=== PATIENT | female | born 1995 | race Caucasian/White ===

== ENCOUNTER → 2021-09-23 | Outpatient (REF) | payer OTHER | LOC: M PLALAB 14:59 | PROVIDERS: ATTEND Advanced Practice Midwife | DX: Z53.9 Procedure and treatment not carried out, unspecified reason (principal) ==

== ENCOUNTER → 2021-10-03 | Outpatient (CLI) | payer OTHER ==
[2021-10-03 17:48] LABS: HEMATOCRIT 34.3 % (36.0-47.0); HEMOGLOBIN 11.5 g/dl (12.0-15.5); MEAN CORPUSCULAR HEMOGLOBIN 26.8 pg (27.0-33.0); MEAN CORPUSCULAR HGB CONC 33.5 g/dl (32.0-36.5); PLATELET COUNT, AUTOMATED 317 10^3/uL (150-450); RED BLOOD COUNT 4.29 10^6/uL (4.00-5.40); WHITE BLOOD COUNT 7.8 10^3/uL (4.0-10.0)
[2021-10-03 19:01] LABS: HEPATITIS C VIRUS ABY INDEX 0.2 INDEX (<0.8); HIV 1&2 SCREEN CENTAUR NEGATIVE (NEGATIVE)
[2021-10-03 21:13] LABS: GC DNA AMPLIFICATION NEGATIVE (NEGATIVE)
== END ==
LOC: M PLALAB 15:03
PROVIDERS: ATTEND Advanced Practice Midwife
DX: Z34.01 Encounter for supervision of normal first pregnancy, first trimester (principal)

== ENCOUNTER → 2022-01-28 | Outpatient (CLI) | payer OTHER ==
[2022-01-28 13:53] LABS: HEMATOCRIT 29.2 % (36.0-47.0); HEMOGLOBIN 9.3 g/dl (12.0-15.5); MEAN CORPUSCULAR HEMOGLOBIN 25.8 pg (27.0-33.0); MEAN CORPUSCULAR HGB CONC 31.8 g/dl (32.0-36.5); MEAN CORPUSCULAR VOLUME 81.1 fl (80.0-96.0); PLATELET COUNT, AUTOMATED 309 10^3/uL (150-450); WHITE BLOOD COUNT 12.6 10^3/uL (4.0-10.0)
[2022-01-28 15:35] LABS: GC DNA AMPLIFICATION NEGATIVE (NEGATIVE)
== END ==
LOC: M PLALAB 08:38
PROVIDERS: ATTEND Obstetrics & Gynecology
DX: Z34.02 Encounter for supervision of normal first pregnancy, second trimester (principal)

== ENCOUNTER → 2022-02-03 | Outpatient (CLI) | payer OTHER | LOC: M LAB 08:11 | PROVIDERS: ATTEND Obstetrics & Gynecology | DX: Z34.02 Encounter for supervision of normal first pregnancy, second trimester (principal) ==

== ENCOUNTER → 2022-03-14 | Outpatient (CLI) | payer OTHER | LOC: M WHC 13:53 | PROVIDERS: ATTEND Obstetrics & Gynecology | DX: Z36.89 Encounter for other specified antenatal screening (principal); O24.419 Gestational diabetes mellitus in pregnancy, unspecified control; Z3A.34 34 weeks gestation of pregnancy ==

== ENCOUNTER → 2022-03-26 | Outpatient (REF) | payer OTHER | LOC: M PLALAB 16:51 | PROVIDERS: ATTEND Obstetrics & Gynecology | DX: O24.419 Gestational diabetes mellitus in pregnancy, unspecified control (principal) ==

== ENCOUNTER 2022-04-14 16:43 | Inpatient (IN) | payer OTHER ==
[~2022-04-14] VITALS: Ht 162.6 cm; Wt 92.4 kg
[2022-04-14] VITALS (18 sets, daily range): BP systolic 127–204; BP diastolic 75–110
[2022-04-14] MEDS ORDERED: LACTATED RINGER'S 1000 ML IV STA (17:09)
[2022-04-14] MEDS ORDERED: LIDOCAINE 1% MDV 20ML VIAL INFIL PRN (17:10)
[2022-04-14] MEDS ORDERED: CARBOPROST TROMETHAMINE 250 MCG/ML AMP IM PRN (17:10)
[2022-04-14] MEDS ORDERED: METHYLERGONOVINE MALEATE 0.2 MG/ML VIAL (J2210) IM PRN (17:10)
[2022-04-14] MEDS ORDERED: TRANEXAMIC ACID INJection 1,000 MG in NS 100 ML IV PRN (17:10)
[2022-04-14] MEDS ORDERED: OXYTOCIN DRIP 30 UNITS in IV 1 EA IV PRN (17:10)
[2022-04-14] MEDS ORDERED: OXYTOCIN INJ 10 UNITS/ML VIAL (J2590) IM PRN (17:10)
[2022-04-14] MEDS ORDERED: FERR325T3 PO (17:51)
[2022-04-14] MEDS ORDERED: PRENTAB9 PO (17:51)
[2022-04-14] MEDS ORDERED: OMEP40CA4 PO (17:51)
[2022-04-14] MEDS ORDERED: VITA200028 PO (17:51)
[2022-04-14] MEDS ORDERED: LORA-674 PO (17:51)
[2022-04-14] MEDS ORDERED: HOME MED LIST COMPLETE! XX SCH (17:55)
[2022-04-14] MEDS ORDERED: NIFEdipine 10 MG CAP PO STA (17:56)
[2022-04-14] MEDS ORDERED: LABETALOL 100MG/20ML VIAL IV STA (18:28)
[2022-04-14 19:04] LABS: HEMATOCRIT 34.8 % (36.0-47.0); HEMOGLOBIN 11.3 g/dl (12.0-15.5); MEAN CORPUSCULAR HEMOGLOBIN 27.4 pg (27.0-33.0); MEAN CORPUSCULAR HGB CONC 32.5 g/dl (32.0-36.5); MEAN CORPUSCULAR VOLUME 84.3 fl (80.0-96.0); PLATELET COUNT, AUTOMATED 169 10^3/uL (150-450); RED BLOOD COUNT 4.13 10^6/uL (4.00-5.40); WHITE BLOOD COUNT 8.2 10^3/uL (4.0-10.0)
[2022-04-14 19:28] LABS: TOTAL PROTEIN,RANDOM URINE 30.4 MG/DL (0.0-12.0)
[2022-04-14 19:32] LABS: ALT/SGPT 35 U/L (12-78); BILIRUBIN,TOTAL 0.4 MG/DL (0.2-1.0); CREATININE FOR GFR 0.64 MG/DL (0.55-1.30); GLOMERULAR FILTRATION RATE > 60.0 (>60); LDH LACTATE DEHYDROGENASE 262 U/L (84-246); URIC ACID 6.3 MG/DL (2.6-6.0)
[2022-04-14] MEDS: miSOPROStol 50MCG 1/2 TABLET PO SCH (20:13)
[2022-04-14] MEDS ORDERED: ACETAMINOPHEN 500 MG TAB PO PRN (22:50)
[2022-04-15] VITALS (47 sets, daily range): BP systolic 117–169; BP diastolic 57–97
[2022-04-15] MEDS: miSOPROStol 50MCG 1/2 TABLET PO SCH ×4 (00:29→13:59)
[2022-04-15] MEDS ORDERED: OMEPRAZOLE 20MG CAP PO ONE (18:00)
[2022-04-15] MEDS ORDERED: OXYTOCIN 30 UNITS IN 0.9% NaCl 500ML IV BAG (J2590) As Ordered ONE (19:29)
[2022-04-15] MEDS: OXYTOCIN DRIP 30 UNITS in IV 1 EA IV SCH (20:55)
[2022-04-15] MEDS: LR 1,000 ML IV SCH (20:55)
[2022-04-15] MEDS: guaiFENesin SYRUP 200MG 10ML UDC PO PRN (21:37)
[2022-04-16] VITALS (50 sets, daily range): BP systolic 121–185; BP diastolic 64–121
[2022-04-16] MEDS ORDERED: BUTORPHANOL 2 MG/ML INJ (J0595) IV ONE (01:00)
[2022-04-16] MEDS ORDERED: PROMETHAZINE 25MG/ML 1ML VIAL IV PRN (01:00)
[2022-04-16] MEDS: guaiFENesin SYRUP 200MG 10ML UDC PO PRN (05:10)
[2022-04-16] MEDS: LABETALOL 100MG TAB PO SCH ×2 (08:01→21:04)
[2022-04-16 10:19] LABS: HEMATOCRIT 35.9 % (36.0-47.0); HEMOGLOBIN 11.2 g/dl (12.0-15.5); MEAN CORPUSCULAR HEMOGLOBIN 26.9 pg (27.0-33.0); MEAN CORPUSCULAR HGB CONC 31.2 g/dl (32.0-36.5); MEAN CORPUSCULAR VOLUME 86.1 fl (80.0-96.0); PLATELET COUNT, AUTOMATED 168 10^3/uL (150-450); RED BLOOD COUNT 4.17 10^6/uL (4.00-5.40); WHITE BLOOD COUNT 11.6 10^3/uL (4.0-10.0)
[2022-04-16] MEDS ORDERED: diphenhydrAMINE 50MG/ML VIAL (J1200) IV PRN (10:45)
[2022-04-16] MEDS ORDERED: NALOXONE INJ 0.4MG/1ML VIAL (J2310 PER 1MG) IV PRN (10:45)
[2022-04-16] MEDS ORDERED: LR 500 ML IV PRN (10:45)
[2022-04-16] MEDS ORDERED: ONDANSETRON 4MG 2ML VIAL IV PRN (10:45)
[2022-04-16] MEDS ORDERED: EPIDURAL/PCA KEYS XX PRN (10:45)
[2022-04-16] MEDS ORDERED: ePHEDrine SULFATE 25 MG/5 ML(5MG/ML) SYRINGE IVP PRN (10:45)
[2022-04-16] MEDS: FENTANYL/ROPIVACAINE/NACL BAG 100 ML EPIDURAL SCH ×2 (11:07→21:03)
[2022-04-16] MEDS: LR 1,000 ML IV SCH ×2 (13:09→21:08)
[2022-04-16] MEDS: LORATADINE 10 MG TAB PO SCH (20:16)
[2022-04-16] MEDS: OXYTOCIN DRIP 30 UNITS in IV 1 EA IV SCH (22:42)
[2022-04-17] VITALS (7 sets, daily range): BP systolic 123–149; BP diastolic 69–83
[2022-04-17] MEDS: guaiFENesin SYRUP 200MG 10ML UDC PO PRN (00:44)
[2022-04-17] MEDS ORDERED: OXYTOCIN INJ 10 UNITS/ML VIAL (J2590) As Ordered ONE (02:51)
[2022-04-17] MEDS ORDERED: KETOROLAC 60MG 2ML VIAL As Ordered ONE (02:51)
[2022-04-17] MEDS ORDERED: dexameTHASONE 4 MG/ML 1ML VIAL (J1100 PER 1MG) As Ordered ONE (02:51)
[2022-04-17] MEDS ORDERED: ONDANSETRON 4MG 2ML VIAL As Ordered ONE (02:51)
[2022-04-17] MEDS ORDERED: MORPHINE PRES-FREE INJ 10 MG/10 ML VIAL As Ordered ONE (02:51)
[2022-04-17] MEDS ORDERED: BICITRA 30ML SOLN UDC As Ordered ONE (02:54)
[2022-04-17] MEDS ORDERED: CLINDAMYCIN 900MG/50ML PREMIX BAG As Ordered ONE (02:54)
[2022-04-17] MEDS ORDERED: AZITHROMYCIN INJ 500MG VIAL As Ordered ONE (02:54)
[2022-04-17] MEDS ORDERED: LIDOCAINE 2% W/EPINEPHRINE 20ML VIAL **PRES FREE As Ordered ONE (02:57)
[2022-04-17] MEDS ORDERED: ONDANSETRON 4MG 2ML VIAL IV PRN (03:50)
[2022-04-17] MEDS ORDERED: diphenhydrAMINE 50MG/ML VIAL (J1200) IV PRN (03:50)
[2022-04-17] MEDS ORDERED: PERCOCET 5MG/325MG TAB PO PRN ×2 (03:50→04:05)
[2022-04-17] MEDS ORDERED: **NOTE PATIENT COMMENT** MISC XX SCH (03:50)
[2022-04-17] MEDS ORDERED: LR 1,000 ML IV SCH ×2 (03:50→04:05)
[2022-04-17] MEDS ORDERED: METOCLOPRAMIDE INJ 10MG/2ML VIAL (J2765 PER 1) IV PRN ×2 (03:50)
[2022-04-17] MEDS ORDERED: NALOXONE INJ 0.4MG/1ML VIAL (J2310 PER 1MG) IV PRN ×2 (03:50)
[2022-04-17] MEDS ORDERED: fentaNYL 100 MCG/2 ML INJECTION IV PRN (03:50)
[2022-04-17] MEDS ORDERED: fentaNYL 100 MCG/2 ML INJECTION As Ordered ONE (03:53)
[2022-04-17] MEDS: SLF 3 ML SYR IV SCH ×3 (04:00→20:52)
[2022-04-17] MEDS ORDERED: CLINDAMYCIN 900 MG in IV 1 EA IV ONE (04:05)
[2022-04-17] MEDS ORDERED: SIMETHICONE 80MG CHEW TAB PO PRN (04:05)
[2022-04-17] MEDS ORDERED: MOM 30ML SUSPENSION UDC PO PRN (04:05)
[2022-04-17] MEDS: LR 1,000 ML IV SCH ×3 (04:05→20:52)
[2022-04-17] MEDS ORDERED: BICITRA 30ML SOLN UDC PO ONE (04:05)
[2022-04-17] MEDS ORDERED: AZITHROMYCIN INJ 500 MG, VIAL MATE ADAPTER 1 EACH in NS 250 ML IV ONE (04:05)
[2022-04-17] MEDS ORDERED: OXYTOCIN DRIP 30 UNITS in IV 1 EA IV SCH ×4 (04:05)
[2022-04-17] MEDS ORDERED: GENTAMICIN IV ONE (04:10)
[2022-04-17] MEDS ORDERED: D5W IV ONE (04:10)
[2022-04-17] MEDS ORDERED: IBUP80TA PO (04:30)
[2022-04-17] MEDS ORDERED: PERCOCET PO (04:30)
[2022-04-17] MEDS ORDERED: COLA100C5 PO (04:30)
[2022-04-17] MEDS: LORATADINE 10 MG TAB PO SCH (09:48)
[2022-04-17] MEDS: KETOROLAC 30 MG/ML 1ML VIAL IV SCH ×3 (09:48→21:30)
[2022-04-17] MEDS: DOCUSATE SODIUM 100MG CAPSULE PO SCH ×2 (09:48→20:52)
[2022-04-17] MEDS: PRENATAL VITAMINS CHEWABLE TABLET PO SCH (09:49)
[2022-04-17] MEDS: LABETALOL 100MG TAB PO SCH ×2 (09:49→20:53)
[2022-04-18 02:17] VITALS: BP 138/77
[2022-04-18] MEDS: IBUPROFEN 800 MG TAB PO SCH ×3 (05:39→21:22)
[2022-04-18 05:44] VITALS: BP 117/58
[2022-04-18 06:18] LABS: HEMATOCRIT 25.3 % (36.0-47.0); MEAN CORPUSCULAR HEMOGLOBIN 27.6 pg (27.0-33.0); MEAN CORPUSCULAR VOLUME 86.1 fl (80.0-96.0); PLATELET COUNT, AUTOMATED 161 10^3/uL (150-450); RED BLOOD COUNT 2.94 10^6/uL (4.00-5.40); WHITE BLOOD COUNT 11.5 10^3/uL (4.0-10.0)
[2022-04-18 06:25] LABS: HEMOGLOBIN 8.1 g/dl (12.0-15.5)
[2022-04-18] MEDS: RHOGAM 300 MCG (1500 IU) INJ (J2790) IM SCH (07:35)
[2022-04-18] MEDS: LORATADINE 10 MG TAB PO SCH (09:24)
[2022-04-18] MEDS: DOCUSATE SODIUM 100MG CAPSULE PO SCH ×2 (09:24→21:21)
[2022-04-18] MEDS: PRENATAL VITAMINS CHEWABLE TABLET PO SCH (09:24)
[2022-04-18] MEDS: LABETALOL 100MG TAB PO SCH ×2 (09:25→21:22)
[2022-04-18 10:00] VITALS: BP 118/68
[2022-04-18 14:00] VITALS: BP 136/74
[2022-04-18 18:00] VITALS: BP 130/69
[2022-04-18] MEDS: PERCOCET 5MG/325MG TAB PO PRN (20:29)
[2022-04-18 22:00] VITALS: BP 126/72
[2022-04-19 02:00] VITALS: BP 121/70
[2022-04-19] MEDS: IBUPROFEN 800 MG TAB PO SCH ×3 (05:19→21:58)
[2022-04-19 06:00] VITALS: BP 121/67
[2022-04-19] MEDS: LORATADINE 10 MG TAB PO SCH (08:40)
[2022-04-19] MEDS: DOCUSATE SODIUM 100MG CAPSULE PO SCH ×2 (08:41→21:11)
[2022-04-19] MEDS: LABETALOL 100MG TAB PO SCH ×2 (08:41→21:16)
[2022-04-19] MEDS: PRENATAL VITAMINS CHEWABLE TABLET PO SCH (08:41)
[2022-04-19] MEDS ORDERED: MEASLES,MUMPS,RUBELLA VACCINE INJ (MMR-II) (90707) SC.IMMUN ONE (09:00)
[2022-04-19 17:57] VITALS: BP 129/59
[2022-04-19] MEDS: PERCOCET 5MG/325MG TAB PO PRN (18:34)
[2022-04-19 22:00] VITALS: BP 143/81
[2022-04-19] MEDS: guaiFENesin SYRUP 200MG 10ML UDC PO PRN (22:08)
[2022-04-20 02:00] VITALS: BP 125/68
[2022-04-20 05:50] VITALS: BP 122/64
[2022-04-20] MEDS: IBUPROFEN 800 MG TAB PO SCH ×2 (06:00→14:05)
[2022-04-20] MEDS: RHOGAM 300 MCG (1500 IU) INJ (J2790) IM SCH (08:07)
[2022-04-20] MEDS: LORATADINE 10 MG TAB PO SCH (08:34)
[2022-04-20] MEDS: DOCUSATE SODIUM 100MG CAPSULE PO SCH (08:34)
[2022-04-20 08:35] VITALS: BP 138/84
[2022-04-20] MEDS: LABETALOL 100MG TAB PO SCH (08:35)
[2022-04-20] MEDS: PRENATAL VITAMINS CHEWABLE TABLET PO SCH (08:35)
[2022-04-20] MEDS ORDERED: LABE100T6 PO (14:35)
== END 2022-04-20 17:24 | disposition home or self-care (01) | DRG 773 ==
LOC: M LDO 16:43 → M LDI 17:18 → M OBS 04-17 05:47
PROVIDERS: ADMIT Advanced Practice Midwife; ATTEND Obstetrics & Gynecology
PROC: 3E0P7GC Introduction of Other Therapeutic Substance into Female Reproductive, Via Natural or Artificial Opening (ICD-10-PCS; 2022-04-14)
PROC: 10907ZC Drainage of Amniotic Fluid, Therapeutic from Products of Conception, Via Natural or Artificial Opening (ICD-10-PCS; 2022-04-16)
PROC: 10D00Z1 Extraction of Products of Conception, Low, Open Approach (ICD-10-PCS; principal; 2022-04-17 02:47)
DX: O14.04 Mild to moderate pre-eclampsia, complicating childbirth (principal); Z3A.38 38 weeks gestation of pregnancy; O24.420 Gestational diabetes mellitus in childbirth, diet controlled; O76 Abnormality in fetal heart rate and rhythm complicating labor and delivery; O62.0 Primary inadequate contractions; Z79.899 Other long term (current) drug therapy; Z37.0 Single live birth; Z88.1 Allergy status to other antibiotic agents

== ENCOUNTER → 2022-05-05 | Outpatient (REF) | payer OTHER ==
[~2022-05-05] MED LIST: COLA100C5 PO; FERR325T3 PO; IBUP80TA PO; LABE100T6 PO; LORA-674 PO; OMEP40CA4 PO; PERCOCET PO; PRENTAB9 PO; VITA200028 PO
[2022-05-05 14:27] LABS: CHOLESTEROL RISK RATIO 3.536 (<5)
== END ==
LOC: M LAB REF 12:29
PROVIDERS: ATTEND Nurse Practitioner Family
DX: R79.89 Other specified abnormal findings of blood chemistry (principal)

== ENCOUNTER → 2022-07-21 | Outpatient (REF) | payer OTHER ==
[2022-07-21 14:37] LABS: CHOLESTEROL RISK RATIO 2.3 (<5); LDL CHOLESTEROL 92.6 MG/DL (<100)
== END ==
LOC: M LAB REF 11:53
PROVIDERS: ATTEND Nurse Practitioner Family
DX: R79.89 Other specified abnormal findings of blood chemistry (principal)

== ENCOUNTER → 2022-09-08 | Outpatient (REF) | payer OTHER | LOC: M SFHCWAGY 13:24 | PROVIDERS: ATTEND Obstetrics & Gynecology | DX: Z12.4 Encounter for screening for malignant neoplasm of cervix (principal); Z77.9 Other contact with and (suspected) exposures hazardous to health | CPT/HCPCS: G0123; G0463 ==

== ENCOUNTER → 2023-05-18 | Outpatient (REF) | payer OTHER ==
[~2023-05-18] MED LIST changes: +LORA-1041 PO; -LORA-674 PO
[2023-05-18 13:03] LABS: BASO % 0.1 % (0.0-1.0); EOS # 0.1 10^3/uL (0.0-0.5); EOS % 0.7 % (0.0-3.0); HEMATOCRIT 38.4 % (36.0-47.0); HEMOGLOBIN 12.1 g/dl (12.0-15.5); LYMPH # 1.6 10^3/uL (1.5-5.0); LYMPH % 23.1 % (24.0-44.0); MEAN CORPUSCULAR HEMOGLOBIN 25.4 pg (27.0-33.0); MEAN CORPUSCULAR HGB CONC 31.5 g/dl (32.0-36.5); MEAN CORPUSCULAR VOLUME 80.7 fl (80.0-96.0); MONO # 0.5 10^3/uL (0.0-0.8); MONO % 6.6 % (2.0-8.0); NEUTROPHILS # 4.7 10^3/uL (1.5-8.5); NEUTROPHILS % 69.2 % (36.0-66.0); PLATELET COUNT, AUTOMATED 320 10^3/uL (150-450); RED BLOOD COUNT 4.76 10^6/uL (4.00-5.40); WHITE BLOOD COUNT 6.8 10^3/uL (4.0-10.0)
[2023-05-18 13:15] LABS: ALBUMIN 4.5 G/DL (3.2-5.2); ALKALINE PHOSPHATASE 84 U/L (46-116); ALT/SGPT 37 U/L (7.0-40); AST/SGOT 21 U/L (<34); BILIRUBIN,TOTAL 0.4 MG/DL (0.3-1.2); BLOOD UREA NITROGEN 12 MG/DL (9-23); CALCIUM LEVEL 9.1 MG/DL (8.5-10.1); CARBON DIOXIDE LEVEL 28 MMOL/L (20-31); CHLORIDE LEVEL 104 MMOL/L (98-107); CHOLESTEROL LEVEL 164 MG/DL (<200); CHOLESTEROL RISK RATIO 3.04 (<5); CREATININE FOR GFR 0.76 MG/DL (0.55-1.30); GLOMERULAR FILTRATION RATE > 60.0 (>60); GLUCOSE, FASTING 85 MG/DL (60-100); HDL CHOLESTEROL 53.9 MG/DL (>40); LDL CHOLESTEROL 89.9 MG/DL (<100); NON-HDL-C 110.1 MG/DL; POTASSIUM SERUM 4.3 MMOL/L (3.5-5.1); SODIUM LEVEL 140 MMOL/L (136-145); THYROID STIMULATING HORMONE 1.472 uIU/ML (0.55-4.78); TOTAL 25(OH) VITAMIN D 67.4 NG/ML (20.0-100.0); TOTAL PROTEIN 7.2 G/DL (5.7-8.2); TRIGLYCERIDES LEVEL 101 MG/DL (<150)
[2023-05-18 13:23] LABS: HEMOGLOBIN A1c 5.4 % (4.0-6.0)
== END ==
LOC: M LAB REF 12:07
PROVIDERS: ATTEND Nurse Practitioner Family
DX: Z13.228 Encounter for screening for other metabolic disorders (principal)

== ENCOUNTER → 2023-09-02 | Outpatient (REF) | payer OTHER | LOC: M LAB REF 12:12 | PROVIDERS: ATTEND Family Medicine Addiction Medicine | DX: J02.9 Acute pharyngitis, unspecified (principal) ==

== ENCOUNTER → 2024-01-08 | Outpatient (REF) | payer OTHER ==
[2024-01-08 13:28] LABS: BASO % 0.7 % (0.0-1.0); EOS # 0.3 10^3/uL (0.0-0.5); EOS % 6.8 % (0.0-3.0); HEMOGLOBIN 12.7 g/dl (12.0-15.5); LYMPH # 1.8 10^3/uL (1.5-5.0); LYMPH % 42.7 % (24.0-44.0); MEAN CORPUSCULAR HEMOGLOBIN 25.9 pg (27.0-33.0); MEAN CORPUSCULAR HGB CONC 31.8 g/dl (32.0-36.5); MEAN CORPUSCULAR VOLUME 81.5 fl (80.0-96.0); MONO # 0.4 10^3/uL (0.0-0.8); MONO % 10.4 % (2.0-8.0); NEUTROPHILS # 1.7 10^3/uL (1.5-8.5); NEUTROPHILS % 39.2 % (36.0-66.0); PLATELET COUNT, AUTOMATED 266 10^3/uL (150-450); RED BLOOD COUNT 4.91 10^6/uL (4.00-5.40); WHITE BLOOD COUNT 4.2 10^3/uL (4.0-10.0)
[2024-01-08 13:35] LABS: ALBUMIN 4.5 G/DL (3.2-5.2); ALKALINE PHOSPHATASE 68 U/L (46-116); ALT/SGPT 19 U/L (7.0-40); AST/SGOT 14 U/L (<34); BILIRUBIN,TOTAL 0.5 MG/DL (0.3-1.2); BLOOD UREA NITROGEN 12 MG/DL (9-23); CALCIUM LEVEL 9.4 MG/DL (8.5-10.1); CARBON DIOXIDE LEVEL 30 MMOL/L (20-31); CHLORIDE LEVEL 104 MMOL/L (98-107); CREATININE FOR GFR 0.83 MG/DL (0.55-1.30); GLOMERULAR FILTRATION RATE > 60.0 (>60); GLUCOSE, FASTING 93 MG/DL (60-100); POTASSIUM SERUM 4.3 MMOL/L (3.5-5.1); SODIUM LEVEL 137 MMOL/L (136-145); TOTAL PROTEIN 7.3 G/DL (5.7-8.2)
== END ==
LOC: M LAB REF 12:38
PROVIDERS: ATTEND Nurse Practitioner Family
DX: E66.3 Overweight (principal)

== ENCOUNTER → 2024-05-23 | Outpatient (REF) | payer OTHER ==
[2024-05-23 13:58] LABS: CHOLESTEROL RISK RATIO 2.9 (<5); HDL CHOLESTEROL 58.9 MG/DL (>40); LDL CHOLESTEROL 78.3 MG/DL (<100); NON-HDL-C 112.1 MG/DL
[2024-05-23 14:02] LABS: TOTAL 25(OH) VITAMIN D 38.5 NG/ML (20.0-100.0)
== END ==
LOC: M LAB REF 13:24
PROVIDERS: ATTEND Nurse Practitioner Family
DX: E55.9 Vitamin D deficiency, unspecified (principal); Z13.220 Encounter for screening for lipoid disorders

== ENCOUNTER 2024-11-22 09:12 | Day surgery (SDC) | payer OTHER ==
[~2024-11-22] VITALS: Ht 162.6 cm; Wt 64.2 kg
[~2024-11-22 09:12] MED LIST changes: +FAMO1TAB11 PO; +THERTAB52 PO
[2024-11-22] MEDS ORDERED: fentaNYL 100 MCG/2 ML INJECTION As Ordered ONE (09:47)
[2024-11-22] MEDS ORDERED: propofoL 200 MG/20 ML VIAL As Ordered ONE (09:48)
[2024-11-22 10:40] VITALS: BP 120/70; O2SAT 100
== END 2024-11-22 10:47 | disposition home or self-care (01) ==
LOC: M OPP 09:12
PROVIDERS: ATTEND Internal Medicine Gastroenterology
DX: K21.00 Gastro-esophageal reflux disease with esophagitis, without bleeding (principal); Z90.49 Acquired absence of other specified parts of digestive tract; Z79.899 Other long term (current) drug therapy; Z88.1 Allergy status to other antibiotic agents; L30.9 Dermatitis, unspecified
CPT/HCPCS: 43239; 88305; J3010

== ENCOUNTER 2024-11-23 17:26 | Emergency (ER) | payer OTHER ==
[~2024-11-23] VITALS: Ht 162.6 cm; Wt 65.1 kg
[2024-11-23 18:26] LABS: HEMATOCRIT 35.8 % (36.0-47.0); HEMOGLOBIN 11.7 g/dl (12.0-15.5); MEAN CORPUSCULAR HEMOGLOBIN 26.7 pg (27.0-33.0); MEAN CORPUSCULAR HGB CONC 32.7 g/dl (32.0-36.5); MEAN CORPUSCULAR VOLUME 81.5 fl (80.0-96.0); PLATELET COUNT, AUTOMATED 270 10^3/uL (150-450); RED BLOOD COUNT 4.39 10^6/uL (4.00-5.40); WHITE BLOOD COUNT 6.1 10^3/uL (4.0-10.0)
[2024-11-23 18:43] LABS: BLOOD UREA NITROGEN 13 MG/DL (9-23); CALCIUM LEVEL 9.1 MG/DL (8.5-10.1); CARBON DIOXIDE LEVEL 26 MMOL/L (20-31); CHLORIDE LEVEL 105 MMOL/L (98-107); GLOMERULAR FILTRATION RATE > 90.0 (>60); GLUCOSE, FASTING 89 MG/DL (60-100); HCG, SERUM QUANTITATIVE < 2.6 MIU/ML (<4.2); POTASSIUM SERUM 4.1 MMOL/L (3.5-5.1); SODIUM LEVEL 141 MMOL/L (136-145)
[2024-11-23 19:13] LABS: EOSINOPHILS 1 % (0-3)
[2024-11-23 19:14] LABS: ATYPICAL LYMPH 8 % (0-5); LYMPHOCYTES 38 % (16-44); MONOCYTES 3 % (0-5); NEUTROPHILS 49 % (28-66); PLATELET ESTIMATE NORMAL (NORMAL)
[2024-11-23 19:39] VITALS: BP 109/67; TEMP 98.4; O2SAT 100
== END 2024-11-23 19:46 | disposition home or self-care (01) ==
LOC: M ED 17:26
DX: N92.0 Excessive and frequent menstruation with regular cycle (principal); K21.9 Gastro-esophageal reflux disease without esophagitis; Z88.1 Allergy status to other antibiotic agents; Z79.899 Other long term (current) drug therapy; Z79.810 Long term (current) use of selective estrogen receptor modulators (SERMs)

== ENCOUNTER → 2025-01-24 | Outpatient (CLI) | payer OTHER ==
[2025-01-24 10:53] LABS: CHOLESTEROL LEVEL 121.0 MG/DL (<200); CHOLESTEROL RISK RATIO 2.54 (<5); LDL CHOLESTEROL 62.1 MG/DL (<100); NON-HDL-C 73.5 MG/DL; TRIGLYCERIDES LEVEL 57.0 MG/DL (<150)
== END ==
LOC: M LAB 08:35
PROVIDERS: ATTEND Nurse Practitioner Family
DX: E66.3 Overweight (principal)

== ENCOUNTER → 2025-02-28 | Outpatient (CLI) | payer OTHER ==
[2025-02-28 18:17] LABS: PLATELET COUNT, AUTOMATED 320 10^3/uL (150-450)
[2025-02-28 18:20] LABS: LDH LACTATE DEHYDROGENASE 166 U/L (120-246)
[2025-02-28 18:22] LABS: ALT/SGPT 17 U/L (7.0-40); AST/SGOT 19 U/L (<34); CREATININE FOR GFR 0.55 MG/DL (0.55-1.30); GLOMERULAR FILTRATION RATE > 90.0 (>60)
[2025-02-28 18:42] LABS: TOTAL PROTEIN,RANDOM URINE 10.7 MG/DL (0.0-14.0)
[2025-02-28 18:54] LABS: HIV 1&2 SCREEN NEGATIVE (NEGATIVE)
[2025-02-28 19:02] LABS: HEPATITIS C VIRUS ABY INDEX 0.07 INDEX (<0.8)
[2025-02-28 19:15] LABS: Trichomonas vaginalis (AMP) NOT DETECTED (NEGATIVE)
[2025-02-28 19:39] LABS: GC DNA AMPLIFICATION NEGATIVE (NEGATIVE)
== END ==
LOC: M PLALAB 15:05
PROVIDERS: ATTEND Advanced Practice Midwife
DX: Z34.91 Encounter for supervision of normal pregnancy, unspecified, first trimester (principal)

== ENCOUNTER → 2025-04-24 | Outpatient (CLI) | payer OTHER | LOC: M WHC 14:27 | PROVIDERS: ATTEND Advanced Practice Midwife | DX: Z34.82 Encounter for supervision of other normal pregnancy, second trimester (principal) ==

== ENCOUNTER → 2025-07-10 | Outpatient (CLI) | payer OTHER ==
[~2025-07-10] MED LIST changes: -LABE100T6 PO; +LABE100T91 PO
[2025-07-10 18:37] LABS: PLATELET COUNT, AUTOMATED 331 10^3/uL (150-450)
[2025-07-10 18:41] LABS: GLUCOSE CHALLENGE TEST 1 HOUR 151 MG/DL (LESS THAN 140)
[2025-07-10 19:17] LABS: HIV 1&2 SCREEN NEGATIVE (NEGATIVE)
[2025-07-10 19:24] LABS: HEPATITIS C VIRUS ABY INDEX 0.06 INDEX (<0.8)
[2025-07-10 19:59] LABS: Trichomonas vaginalis (AMP) NOT DETECTED (NEGATIVE)
[2025-07-10 20:23] LABS: GC DNA AMPLIFICATION NEGATIVE (NEGATIVE)
== END ==
LOC: M PLALAB 13:42
PROVIDERS: ATTEND Obstetrics & Gynecology
DX: O34.211 Maternal care for low transverse scar from previous cesarean delivery (principal); Z3A.00 Weeks of gestation of pregnancy not specified